=== PATIENT | male | born 1965 | race Caucasian/White ===

== ENCOUNTER 2019-05-23 19:06 | Inpatient (IN) | payer OTHER ==
--- NOTE | 2019-05-23 21:12 | HP ---
CIWA Score Nausea/Vomitin-No Nausea/No Vomiting Muscle Tremors: None Anxiety: 1-Mildly Anxious Agitation: 0-Normal Activity Paroxysmal Sweats: No Perspiration Orientation: 0-Oriented Tacttile Disturbances: 0-None Auditory Disturbances: 0-None Visual Disturbances: 0-None Headache: 2-Mild CIWA-Ar Total Score: 3 - Admission Criteria OASAS Guidelines: Admission for Medically Managed Detox: Requires at least one of the followin. CIWA greater than 12 2. Seizures within the past 24 hours 3. Delirium tremens within the past 24 hours 4. Hallucinations within the past 24 hours 5. Acute intervention needed for co occurring medical disorder 6. Acute intervention needed for co occurring psychiatric disorder 7. Severe withdrawal that cannot be handled at a lower level of care (continued vomiting, continued diarrhea, abnormal vital signs) requiring intravenous medication and/or fluids 8. Admission ROS S - [facility] Chief Complaint: Seeking admission to detox from alcohol Allergies/Adverse Reactions: Allergies Allergy/AdvReac Type Severity Reaction Status Date / Time haloperidol [From Haldol] Allergy Verified 05/23/19 20:05 History of Present Illness: 53 years male karih a long history of alcohol dependence is seeking admission to detox. Patient has been to previous detox and reports insignificant period of sobriety. Patient's last admission to [facility] was in 2010. He denies suicide attempt and suicidal ideation at this time. Patient is not actively withdrawing at this time. His CIWA score is 3 and MITCHEL is 0.000. He reports that his last drink was yesterday morning. He does not meet criteria for admission to detox at this time. Rehab. beds are at full capacity. Alternative treatment /fci information provided to patient. - Ebola screening Have you traveled outside of the country in the last 21 days: No (N) Have you had contact with anyone from an Ebola affected area: No Do you have a fever: No - Review of Systems Constitutional: No Symptoms Reported EENT: reports: No Symptoms Reported Respiratory: reports: No Symptoms reported Cardiac: reports: No Symptoms Reported GI: reports: Poor Appetite, Poor Fluid Intake : reports: No Symptoms Reported Musculoskeletal: reports: No Symptoms Reported Integumentary: reports: No Symptoms Reported Neuro: reports: Headache Endocrine: reports: No Symptoms Reported Hematology: reports: No Symptoms Reported Psychiatric: reports: No Sypmtoms Reported, Mood/Affect Appropiate, Orientated x3 Other Systems: Reviewed and Negative Patient History - Patient Medical History Hx Anemia: No Hx Asthma: Yes Hx Chronic Obstructive Pulmonary Disease (COPD): No Hx Cancer: No Hx Cardiac Disorders: No Hx Congestive Heart Failure: No Hx Hypertension: No Hx Hypercholesterolemia: No Hx Pacemaker: No HX Cerebrovascular Accident: No Hx Seizures: No Hx Dementia: No Hx Diabetes: No Hx Gastrointestinal Disorders: No Hx Liver Disease: No Hx Genitourinary Disorders: No Hx Sexually Transmitted Disorders: No Hx Renal Disease (ESRD): No Hx Thyroid Disease: No Hx Human Immunodeficiency Virus (HIV): No (Negative ) Hx Hepatitis C: No Hx Depression: Yes Hx Suicide Attempt: No (Denies suicidal ideation at this time) Hx Bipolar Disorder: No Hx Schizophrenia: No - Patient Surgical History Past Surgical History: No - PPD History Previous Implant?: No Documented Results: Negative w/proof Implanted On Prior [facility] Admission?: No PPD to be Administered?: Yes - Reproductive History Patient is a Female of Child Bearing Age (11 -55 yrs old): No (male) - Smoking Cessation Smoking history: Current every day smoker Have you smoked in the past 12 months: Yes Aproximately how many cigarettes per day: 20 Hx Chewing Tobacco Use: No Initiated information on smoking cessation: Yes 'Breaking Loose' booklet given: 05/23/19 - Substance & Tx. History Hx Alcohol Use: Yes Hx Substance Use: Yes Substance Use Type: Alcohol, Cocaine Hx Substance Use Treatment: Yes (UNknown) - Substances abused Alcohol Substance route: Oral Frequency: 3-6 times per week Amount used: VODKA 1 BOTTLE Age of first use: 6 Date of last use: 05/22/19 Crack Frequency: Daily Amount used: $100 - $1000 Age of first use: 13 Date of last use: 05/22/19 Admission Physical Exam [facility] - Physical General Appearance: Yes: Within Normal Limits HEENTM: Yes: Within Normal Limits Respiratory: Yes: Within Normal Limits Neck: Yes: Supple Breast: Yes: Breast Exam Deferred Cardiology: Yes: Regular Rhythm, Regular Rate Abdominal: Yes: Normal Bowel Sounds Genitourinary: Yes: Within Normal Limits Back: Yes: Normal Inspection Musculoskeletal: Yes: Within Normal Limits Extremities: Yes: Within Normal Limits Neurological: Yes: Within Normal Limits Integumentary: Yes: Warm Lymphatic: Yes: Within Normal Limits - Diagnostic (1) Alcohol dependence with withdrawal, uncomplicated Current Visit: Yes Status: Acute (2) Nicotine dependence Current Visit: Yes Status: Chronic Qualifiers: Nicotine product type: cigarettes Substance use status: uncomplicated Qualified Code(s): F17.210 - Nicotine dependence, cigarettes, uncomplicated (3) Asthma Current Visit: Yes Status: Chronic Screened but not Admitted - Documentation of Visit Screened but not Admitted: Yes Left Prior to Completion of Assessment: No Insurance Authorization Denied: No Patient Does Not Meet Criteria for Admission: Yes Level of Care Recommended at this Time: Other Alternative Treatment/[facility] Info Provided: Yes Additional Information/Explanation: Patient is not actively withdrawing at this time. His CIWA score is 3 and MITCHEL is 0.000. He reports that his last drink was yesterday morning. He does not meet criteria for admission to detox at this time. Rehab. beds are at full capacity. Alternative treatment /fci information provided to patient. Urine Drug Screen - Test Device Lot number: [id number] Expiration date: 01/02/21 - Control Is test valid?: No - Results Drug screen NEGATIVE: No Urine drug screen results: [facility] Inpatient Re[facility] Admission - Rehab Decision to Admit Inpatient rehab admission?: No
[2019-05-23] MEDS ORDERED: BISMUTH SUBSALICYLATE 524 MG/30 ML UD PO PRN (21:24)
[2019-05-23] MEDS ORDERED: IBUPROFEN 400 MG TABLET (FP) PO PRN (21:24)
[2019-05-23] MEDS ORDERED: MAG HYDROX/AL HYDROX/SIMETH 30 ML UNIT-DOSE CUP PO PRN (21:24)
[2019-05-23] MEDS ORDERED: ACETAMINOPHEN 325 MG TABLET (FP) PO PRN ×2 (21:24)
[2019-05-23] MEDS ORDERED: MAGNESIUM HYDROX 2400MG/30ML ORAL SUSPENSION 30 ML CUP PO PRN (21:24)
[2019-05-23] MEDS ORDERED: chlordiazePOXIDE HCL 10 MG CAPSULE PO PRN (21:24)
[2019-05-23] MEDS ORDERED: NICOTINE POLACRILEX 2 MG GUM BUC PRN (21:24)
[2019-05-23] MEDS ORDERED: MAGNESIUM CITRATE 300 ML BOTTLE PO PRN (21:24)
[2019-05-23] MEDS ORDERED: MELATONIN 5 MG TABLETS PO PRN (21:24)
[2019-05-23] MEDS ORDERED: METHOCARBAMOL 500 MG TABLET PO PRN (21:24)
[2019-05-23] MEDS ORDERED: hydrOXYzine PAMOATE 25 MG CAPSULE (FP) PO PRN (21:24)
--- NOTE | 2019-05-23 23:13 | HP ---
CIWA Score Nausea/Vomitin (vomiting x 2) Muscle Tremors: 3 Anxiety: 3 Agitation: 2 Paroxysmal Sweats: 2 Orientation: 0-Oriented Tacttile Disturbances: 0-None Auditory Disturbances: 0-None Visual Disturbances: 0-None Headache: 2-Mild CIWA-Ar Total Score: 15 - Admission Criteria OASAS Guidelines: Admission for Medically Managed Detox: Requires at least one of the followin. CIWA greater than 12 2. Seizures within the past 24 hours 3. Delirium tremens within the past 24 hours 4. Hallucinations within the past 24 hours 5. Acute intervention needed for co occurring medical disorder 6. Acute intervention needed for co occurring psychiatric disorder 7. Severe withdrawal that cannot be handled at a lower level of care (continued vomiting, continued diarrhea, abnormal vital signs) requiring intravenous medication and/or fluids 8. Admitting History and Physical - Smoking History Smoking history: Current every day smoker Have you smoked in the past 12 months: Yes Aproximately how many cigarettes per day: 20 - Alcohol/Substance Use Hx Alcohol Use: Yes Admission ROS [facility] Chief Complaint: Alcohol withdrawal symptoms Allergies/Adverse Reactions: Allergies Allergy/AdvReac Type Severity Reaction Status Date / Time haloperidol [From Haldol] Allergy Verified 05/23/19 20:05 History of Present Illness: 53 years male karih a long history of alcohol dependence is seeking admission to detox. Patient has been to previous detox and reports insignificant period of sobriety. Patient's last admission to [facility] was in 2010. He denies suicide attempt and suicidal ideation at this time. Exam Limitations: No Limitations - Ebola screening Have you traveled outside of the country in the last 21 days: No (N) Have you had contact with anyone from an Ebola affected area: No Do you have a fever: No - Review of Systems Constitutional: Chills EENT: reports: No Symptoms Reported Respiratory: reports: No Symptoms reported Cardiac: reports: No Symptoms Reported GI: reports: Diarrhea (x 3), Poor Appetite, Poor Fluid Intake, Vomiting (x 2), Abdominal cramping : reports: No Symptoms Reported Musculoskeletal: reports: Back Pain Integumentary: reports: Dryness, Flushing Neuro: reports: Tremors Endocrine: reports: No Symptoms Reported Hematology: reports: No Symptoms Reported Psychiatric: reports: Judgement Intact, Mood/Affect Appropiate, Orientated x3 Other Systems: Reviewed and Negative Patient History - Patient Medical History Hx Anemia: No Hx Asthma: Yes Hx Chronic Obstructive Pulmonary Disease (COPD): No Hx Cancer: No Hx Cardiac Disorders: No Hx Congestive Heart Failure: No Hx Hypertension: No Hx Hypercholesterolemia: No Hx Pacemaker: No HX Cerebrovascular Accident: No Hx Seizures: No Hx Dementia: No Hx Diabetes: No Hx Gastrointestinal Disorders: No Hx Liver Disease: No Hx Genitourinary Disorders: No Hx Sexually Transmitted Disorders: No Hx Renal Disease (ESRD): No Hx Thyroid Disease: No Hx Human Immunodeficiency Virus (HIV): No (Negative ) Hx Hepatitis C: No Hx Depression: Yes Hx Suicide Attempt: No (Denies suicidal ideation at this time) Hx Bipolar Disorder: No Hx Schizophrenia: No - Patient Surgical History Past Surgical History: No Hx Neurologic Surgery: No Hx Cataract Extraction: No Hx Cardiac Surgery: No Hx Lung Surgery: No Hx Breast Surgery: No Hx Breast Biopsy: No Hx Abdominal Surgery: No Hx Appendectomy: No Hx Cholecystectomy: No Hx Genitourinary Surgery: No Hx Section: No Hx Orthopedic Surgery: No Anesthesia Reaction: No - PPD History Previous Implant?: No Documented Results: Negative w/proof Implanted On Prior [facility] Admission?: No PPD to be Administered?: Yes - Reproductive History Patient is a Female of Child Bearing Age (11 -55 yrs old): No (male) - Smoking Cessation Smoking history: Current every day smoker Have you smoked in the past 12 months: Yes Aproximately how many cigarettes per day: 20 Hx Chewing Tobacco Use: No Initiated information on smoking cessation: Yes 'Breaking Loose' booklet given: 05/23/19 - Substance & Tx. History Hx Alcohol Use: Yes Hx Substance Use: Yes Substance Use Type: Cocaine Hx Substance Use Treatment: Yes - Substances abused Alcohol Substance route: Oral Frequency: 3-6 times per week Amount used: VODKA 1 BOTTLE Age of first use: 6 Date of last use: 05/23/19 Crack Frequency: Daily Amount used: $100 - $1000 Age of first use: 13 Date of last use: 05/23/19 Admission Physical Exam [facility] - Physical General Appearance: Yes: Moderate Distress, Anxious HEENTM: Yes: Within Normal Limits Respiratory: Yes: Normal Breath Sounds, No Respiratory Distress Neck: Yes: Within Normal Limits, Supple Breast: Yes: Breast Exam Deferred Cardiology: Yes: Regular Rhythm, Regular Rate Abdominal: Yes: Normal Bowel Sounds, Soft Genitourinary: Yes: Within Normal Limits Back: Yes: Normal Inspection Musculoskeletal: Yes: Within Normal Limits Extremities: Yes: Normal Inspection Neurological: Yes: Within Normal Limits, Fully Oriented, Alert, Normal Mood/ Affect Integumentary: Yes: Warm Lymphatic: Yes: Within Normal Limits - Diagnostic (1) Alcohol dependence with withdrawal, uncomplicated Current Visit: Yes Status: Acute (2) Nicotine dependence Current Visit: Yes Status: Chronic Qualifiers: Nicotine product type: cigarettes Substance use status: uncomplicated Qualified Code(s): F17.210 - Nicotine dependence, cigarettes, uncomplicated (3) Asthma Current Visit: Yes Status: Chronic Cleared for Admission S - Detox or Rehab S Level of Care: Medically Managed Detox Regimen/Protocol: [facility] Urine Drug Screen - Test Device Lot number: [id number] Expiration date: 01/02/21 - Control Is test valid?: No - Results Drug screen NEGATIVE: No Urine drug screen results: [facility] Inpatient Rehab Admission - Rehab Decision to Admit Inpatient rehab admission?: No
[2019-05-23] MEDS: chlordiazePOXIDE HCL 25 MG CAPSULE PO SCH (23:59)
[2019-05-23] MEDS: THIAMINE HCL 100 MG TABLET (FP) PO SCH (23:59)
[2019-05-24] MEDS: chlordiazePOXIDE HCL 25 MG CAPSULE PO SCH ×3 (06:06→22:30)
[2019-05-24 10:10] LABS: ALBUMIN 3.3 g/dl (3.4-5.0); BILIRUBIN,TOTAL 0.3 mg/dL (0.2-1); BLOOD UREA NITROGEN 18.2 mg/dL (7-18); CALCIUM 8.7 mg/dL (8.5-10.1); CREATININE 0.9 mg/dL (0.55-1.3); POTASSIUM 4.1 mmol/L (3.5-5.1)
[2019-05-24 10:25] LABS: HEMOGLOBIN 12.1 GM/dL (11.7-16.9); MCH 33.7 pg (25.7-33.7); MCHC 33.7 g/dl (32.0-35.9); MEAN CELL VOLUME 99.9 fl (80-96); PLATELET COUNT 178 K/MM3 (134-434); RDW 13.8 % (11.9-15.9); WHITE BLOOD COUNT 4.5 K/mm3 (4.0-10.0)
--- NOTE | 2019-05-24 10:45 | EKG ---
Test Reason : Blood Pressure : / mmHG Vent. Rate : 058 BPM Atrial Rate : 058 BPM P-R Int : 164 ms QRS Dur : 102 ms QT Int : 438 ms P-R-T Axes : 074 077 074 degrees QTc Int : 429 ms BASELINE ARTIFACT SINUS BRADYCARDIA OTHERWISE NORMAL ECG Confirmed by MD MARIAH, VITA ([id number]) on 05/24/2019 10:45:07 AM Referred By: Confirmed By:VITA LEMUS MD
[2019-05-24] MEDS: NICOTINE 21 MG/24 HOURS TOPICAL PATCH TD SCH (11:30)
[2019-05-24] MEDS: PRENATAL VITAMINS W/ FOLIC ACID TABLET (FP) PO SCH (11:31)
--- NOTE | 2019-05-24 15:23 | PN ---
[facility] CIWA - CIWA Score Nausea/Vomitin-Mild Nausea/No Vomiting Muscle Tremors: 4-Moderate,w/Arms Extend Anxiety: 3 Agitation: 2 Paroxysmal Sweats: 3 Orientation: 0-Oriented Tacttile Disturbances: 0-None Auditory Disturbances: 0-None Visual Disturbances: 0-None Headache: 0-None Present CIWA-Ar Total Score: 13 S Progress Note (SOAP) Subjective: 53 years old male admitted on 05/23/19 for alcohol withdrawal sx management treated with librium detox regimen coughing "chest cold" clear lung no wheezing mucinex bid encourage oral fluid resting Objective: 05/24/19 15:23 Vital Signs Temperature 97.8 F 05/24/19 13:17 Pulse Rate 73 05/24/19 13:17 Respiratory Rate 18 05/24/19 13:17 Blood Pressure 90/62 05/24/19 13:17 O2 Sat by Pulse Oximetry (%) 05/24/19 15:23 Laboratory Last Values WBC 4.5 K/mm3 (4.0-10.0) 05/24/19 08:00 RBC 3.60 M/mm3 (4.00-5.60) L 05/24/19 08:00 Hgb 12.1 GM/dL (11.7-16.9) 05/24/19 08:00 Hct 36.0 % (35.4-49) 05/24/19 08:00 MCV 99.9 fl (80-96) H 05/24/19 08:00 MCH 33.7 pg (25.7-33.7) 05/24/19 08:00 MCHC 33.7 g/dl (32.0-35.9) 05/24/19 08:00 RDW 13.8 % (11.9-15.9) 05/24/19 08:00 Plt Count 178 K/MM3 (134-434) 05/24/19 08:00 MPV 7.0 fl (7.5-11.1) L 05/24/19 08:00 Sodium 139 mmol/L (136-145) 05/24/19 08:00 Potassium 4.1 mmol/L (3.5-5.1) 05/24/19 08:00 Chloride 109 mmol/L (98-107) H 05/24/19 08:00 Carbon Dioxide 25 mmol/L (21-32) 05/24/19 08:00 Anion Gap 5 MMOL/L (8-16) L 05/24/19 08:00 BUN 18.2 mg/dL (7-18) H 05/24/19 08:00 Creatinine 0.9 mg/dL (0.55-1.3) 05/24/19 08:00 Est GFR (CKD-EPI)AfAm 111.05 05/24/19 08:00 Est GFR (CKD-EPI)NonAf 95.81 05/24/19 08:00 Random Glucose 87 mg/dL (74-106) 05/24/19 08:00 Calcium 8.7 mg/dL (8.5-10.1) 05/24/19 08:00 Total Bilirubin 0.3 mg/dL (0.2-1) 05/24/19 08:00 AST 18 U/L (15-37) 05/24/19 08:00 ALT 23 U/L (13-61) 05/24/19 08:00 Alkaline Phosphatase 53 U/L (45-117) 05/24/19 08:00 Total Protein 6.0 g/dl (6.4-8.2) L 05/24/19 08:00 Albumin 3.3 g/dl (3.4-5.0) L 05/24/19 08:00 RPR Titer Nonreactive (NONREACTIVE) 05/24/19 08:00 lab noted Assessment: 05/24/19 15:24 alcohol withdrawal sx Plan: continue librium detox regimen
--- NOTE | 2019-05-24 17:35 | CONSULT ---
[facility] Psychiatric Consult - Data Date of interview: 05/24/19 Admission source: [facility] Identifying data: Patient is approached for psychiatric interview (as requested by medical team). Mr Lutz declines to converse with psychiatrist. " I don't feel like talking. Leave ". Nursing staff is aware.
[2019-05-24] MEDS: THIAMINE HCL 100 MG TABLET (FP) PO SCH (22:22)
[2019-05-24] MEDS: guaiFENesin 600 MG TABLET.ER (FP) PO SCH (22:23)
[2019-05-25] MEDS: chlordiazePOXIDE 5 MG CAPSULE PO SCH ×3 (06:26→21:28)
[2019-05-25] MEDS: guaiFENesin 600 MG TABLET.ER (FP) PO SCH ×2 (10:29→21:31)
[2019-05-25] MEDS: NICOTINE 21 MG/24 HOURS TOPICAL PATCH TD SCH (10:29)
[2019-05-25] MEDS: PRENATAL VITAMINS W/ FOLIC ACID TABLET (FP) PO SCH (10:29)
[2019-05-25] MEDS: MENTHOL/PHENOL 1 EACH UD MM PRN ×2 (10:30→21:31)
--- NOTE | 2019-05-25 11:42 | PN ---
S CIWA - CIWA Score Nausea/Vomitin-Mild Nausea/No Vomiting Muscle Tremors: 2 Anxiety: 2 Agitation: 2 Paroxysmal Sweats: 1-Minimal Palms Moist Orientation: 0-Oriented Tacttile Disturbances: 0-None Auditory Disturbances: 0-None Visual Disturbances: 0-None Headache: 0-None Present CIWA-Ar Total Score: 8 S Progress Note (SOAP) Subjective: 53 years old male admitted on 05/23/19 for alcohol withdrawal sx management treated with librium detox regimen ate breakfast feeling better today slept through the night Objective: 05/25/19 11:41 Vital Signs Temperature 97.8 F 05/25/19 09:19 Pulse Rate 77 05/25/19 09:19 Respiratory Rate 16 05/25/19 09:19 Blood Pressure 94/54 L 05/25/19 09:19 O2 Sat by Pulse Oximetry (%) Laboratory Last Values WBC 4.5 K/mm3 (4.0-10.0) 05/24/19 08:00 RBC 3.60 M/mm3 (4.00-5.60) L 05/24/19 08:00 Hgb 12.1 GM/dL (11.7-16.9) 05/24/19 08:00 Hct 36.0 % (35.4-49) 05/24/19 08:00 MCV 99.9 fl (80-96) H 05/24/19 08:00 MCH 33.7 pg (25.7-33.7) 05/24/19 08:00 MCHC 33.7 g/dl (32.0-35.9) 05/24/19 08:00 RDW 13.8 % (11.9-15.9) 05/24/19 08:00 Plt Count 178 K/MM3 (134-434) 05/24/19 08:00 MPV 7.0 fl (7.5-11.1) L 05/24/19 08:00 Sodium 139 mmol/L (136-145) 05/24/19 08:00 Potassium 4.1 mmol/L (3.5-5.1) 05/24/19 08:00 Chloride 109 mmol/L (98-107) H 05/24/19 08:00 Carbon Dioxide 25 mmol/L (21-32) 05/24/19 08:00 Anion Gap 5 MMOL/L (8-16) L 05/24/19 08:00 BUN 18.2 mg/dL (7-18) H 05/24/19 08:00 Creatinine 0.9 mg/dL (0.55-1.3) 05/24/19 08:00 Est GFR (CKD-EPI)AfAm 111.05 05/24/19 08:00 Est GFR (CKD-EPI)NonAf 95.81 05/24/19 08:00 Random Glucose 87 mg/dL (74-106) 05/24/19 08:00 Calcium 8.7 mg/dL (8.5-10.1) 05/24/19 08:00 Total Bilirubin 0.3 mg/dL (0.2-1) 05/24/19 08:00 AST 18 U/L (15-37) 05/24/19 08:00 ALT 23 U/L (13-61) 05/24/19 08:00 Alkaline Phosphatase 53 U/L (45-117) 05/24/19 08:00 Total Protein 6.0 g/dl (6.4-8.2) L 05/24/19 08:00 Albumin 3.3 g/dl (3.4-5.0) L 05/24/19 08:00 RPR Titer Nonreactive (NONREACTIVE) 05/24/19 08:00 lab noted Assessment: 05/25/19 11:42 alcohol withdrawal sx Plan: continue libirum detox regimen
[2019-05-25] MEDS ORDERED: predniSONE 20 MG TABLET (UD) PO ONE (14:37)
[2019-05-25] MEDS: ALBUTEROL SO4 8 GM HFA INHALER IH PRN ×2 (14:41→18:46)
[2019-05-25] MEDS: THIAMINE HCL 100 MG TABLET (FP) PO SCH (21:28)
[2019-05-26] MEDS ORDERED: chlordiazePOXIDE HCL 10 MG CAPSULE PO PRN
[2019-05-26] MEDS: chlordiazePOXIDE HCL 10 MG CAPSULE PO SCH ×3 (05:30→21:14)
[2019-05-26] MEDS ORDERED: predniSONE 20 MG TABLET (UD) PO ONE (10:00)
[2019-05-26] MEDS: guaiFENesin 600 MG TABLET.ER (FP) PO SCH ×2 (10:54→22:11)
[2019-05-26] MEDS: NICOTINE 21 MG/24 HOURS TOPICAL PATCH TD SCH (10:55)
[2019-05-26] MEDS: ALBUTEROL SO4 8 GM HFA INHALER IH PRN ×3 (10:56→22:12)
[2019-05-26] MEDS: PRENATAL VITAMINS W/ FOLIC ACID TABLET (FP) PO SCH (10:56)
--- NOTE | 2019-05-26 11:51 | PN ---
[facility] CIWA - CIWA Score Nausea/Vomitin-No Nausea/No Vomiting Muscle Tremors: 2 Anxiety: 1-Mildly Anxious Agitation: 1-Slight > Activity Paroxysmal Sweats: No Perspiration Orientation: 0-Oriented Tacttile Disturbances: 0-None Auditory Disturbances: 0-None Visual Disturbances: 0-None Headache: 0-None Present CIWA-Ar Total Score: 4 S Progress Note (SOAP) Subjective: 53 years old male admitted on 05/23/19 for alcohol withdrawal sx management treated with librium detox regimen ambulating on hallway encourage oral fluid denies dizziness steady gait Objective: 05/26/19 11:49 Vital Signs Temperature 98.4 F 05/26/19 09:08 Pulse Rate 88 05/26/19 09:08 Respiratory Rate 16 05/26/19 09:08 Blood Pressure 95/56 L 05/26/19 09:08 O2 Sat by Pulse Oximetry (%) Laboratory Last Values WBC 4.5 K/mm3 (4.0-10.0) 05/24/19 08:00 RBC 3.60 M/mm3 (4.00-5.60) L 05/24/19 08:00 Hgb 12.1 GM/dL (11.7-16.9) 05/24/19 08:00 Hct 36.0 % (35.4-49) 05/24/19 08:00 MCV 99.9 fl (80-96) H 05/24/19 08:00 MCH 33.7 pg (25.7-33.7) 05/24/19 08:00 MCHC 33.7 g/dl (32.0-35.9) 05/24/19 08:00 RDW 13.8 % (11.9-15.9) 05/24/19 08:00 Plt Count 178 K/MM3 (134-434) 05/24/19 08:00 MPV 7.0 fl (7.5-11.1) L 05/24/19 08:00 Sodium 139 mmol/L (136-145) 05/24/19 08:00 Potassium 4.1 mmol/L (3.5-5.1) 05/24/19 08:00 Chloride 109 mmol/L (98-107) H 05/24/19 08:00 Carbon Dioxide 25 mmol/L (21-32) 05/24/19 08:00 Anion Gap 5 MMOL/L (8-16) L 05/24/19 08:00 BUN 18.2 mg/dL (7-18) H 05/24/19 08:00 Creatinine 0.9 mg/dL (0.55-1.3) 05/24/19 08:00 Est GFR (CKD-EPI)AfAm 111.05 05/24/19 08:00 Est GFR (CKD-EPI)NonAf 95.81 05/24/19 08:00 Random Glucose 87 mg/dL (74-106) 05/24/19 08:00 Calcium 8.7 mg/dL (8.5-10.1) 05/24/19 08:00 Total Bilirubin 0.3 mg/dL (0.2-1) 05/24/19 08:00 AST 18 U/L (15-37) 05/24/19 08:00 ALT 23 U/L (13-61) 05/24/19 08:00 Alkaline Phosphatase 53 U/L (45-117) 05/24/19 08:00 Total Protein 6.0 g/dl (6.4-8.2) L 05/24/19 08:00 Albumin 3.3 g/dl (3.4-5.0) L 05/24/19 08:00 RPR Titer Nonreactive (NONREACTIVE) 05/24/19 08:00 lab noted Assessment: 05/26/19 11:49 alcohol withdrawal sx Plan: continue librium detox regimen
[2019-05-26] MEDS: ALBUTEROL SO4 0.083% IH SOL 2.5 MG/3 ML VIAL.NEB. NEB PRN ×2 (13:31→22:34)
[2019-05-26] MEDS ORDERED: ONDANSETRON *ODT* 4 MG TABLET SL PRN (17:52)
--- NOTE | 2019-05-26 17:55 | PN ---
[facility] Progress Note Note: Vital Signs Temperature 98.8 F 05/26/19 17:35 Pulse Rate 81 05/26/19 17:35 Respiratory Rate 18 05/26/19 17:35 Blood Pressure 117/57 L 05/26/19 17:35 O2 Sat by Pulse Oximetry (%) Laboratory Last Values WBC 4.5 K/mm3 (4.0-10.0) 05/24/19 08:00 RBC 3.60 M/mm3 (4.00-5.60) L 05/24/19 08:00 Hgb 12.1 GM/dL (11.7-16.9) 05/24/19 08:00 Hct 36.0 % (35.4-49) 05/24/19 08:00 MCV 99.9 fl (80-96) H 05/24/19 08:00 MCH 33.7 pg (25.7-33.7) 05/24/19 08:00 MCHC 33.7 g/dl (32.0-35.9) 05/24/19 08:00 RDW 13.8 % (11.9-15.9) 05/24/19 08:00 Plt Count 178 K/MM3 (134-434) 05/24/19 08:00 MPV 7.0 fl (7.5-11.1) L 05/24/19 08:00 Sodium 139 mmol/L (136-145) 05/24/19 08:00 Potassium 4.1 mmol/L (3.5-5.1) 05/24/19 08:00 Chloride 109 mmol/L (98-107) H 05/24/19 08:00 Carbon Dioxide 25 mmol/L (21-32) 05/24/19 08:00 Anion Gap 5 MMOL/L (8-16) L 05/24/19 08:00 BUN 18.2 mg/dL (7-18) H 05/24/19 08:00 Creatinine 0.9 mg/dL (0.55-1.3) 05/24/19 08:00 Est GFR (CKD-EPI)AfAm 111.05 05/24/19 08:00 Est GFR (CKD-EPI)NonAf 95.81 05/24/19 08:00 Random Glucose 87 mg/dL (74-106) 05/24/19 08:00 Calcium 8.7 mg/dL (8.5-10.1) 05/24/19 08:00 Total Bilirubin 0.3 mg/dL (0.2-1) 05/24/19 08:00 AST 18 U/L (15-37) 05/24/19 08:00 ALT 23 U/L (13-61) 05/24/19 08:00 Alkaline Phosphatase 53 U/L (45-117) 05/24/19 08:00 Total Protein 6.0 g/dl (6.4-8.2) L 05/24/19 08:00 Albumin 3.3 g/dl (3.4-5.0) L 05/24/19 08:00 RPR Titer Nonreactive (NONREACTIVE) 05/24/19 08:00 c/o of nausea and vomiting zofran prn fluids as tolerated continue to monitor
[2019-05-26] MEDS: THIAMINE HCL 100 MG TABLET (FP) PO SCH (21:14)
[2019-05-27] MEDS ORDERED: chlordiazePOXIDE HCL 10 MG CAPSULE PO ONE (05:00)
[2019-05-27] MEDS: ALBUTEROL SO4 8 GM HFA INHALER IH PRN (06:34)
[2019-05-27] MEDS ORDERED: predniSONE 20 MG TABLET (UD) PO ONE (07:00)
[2019-05-27] MEDS: ALBUTEROL SO4 0.083% IH SOL 2.5 MG/3 ML VIAL.NEB. NEB PRN (07:09)
--- NOTE | 2019-05-27 09:12 | PN ---
[facility] CIWA - CIWA Score Nausea/Vomitin-No Nausea/No Vomiting Muscle Tremors: 1-None Visible, but [place] Anxiety: 0-No Anxiety, at Ease Agitation: 0-Normal Activity Paroxysmal Sweats: No Perspiration Orientation: 0-Oriented Tacttile Disturbances: 0-None Auditory Disturbances: 0-None Visual Disturbances: 0-None Headache: 1-Very Mild CIWA-Ar Total Score: 2 [facility] Progress Note (SOAP) Subjective: alert,no complaint Objective: 05/27/19 09:11 Vital Signs Temperature 98.0 F 05/27/19 07:46 Pulse Rate 75 05/27/19 07:46 Respiratory Rate 18 05/27/19 07:46 Blood Pressure 100/52 L 05/27/19 07:46 O2 Sat by Pulse Oximetry (%) Assessment: 05/27/19 09:11 detox completed,no withdrawal symptom Plan: discharge today,follow up with after care program as arrangement
--- NOTE | 2019-05-27 09:14 | DS ---
[facility] Detox Discharge Summary Admission Date: 05/23/19 Discharge Date: 05/27/19 - History Present History: Alcohol Dependence Additional Comments: follow up with after care program as arrangement Pertinent Past History: asthma nicotine dependence - Physical Exam Results Vital Signs: Vital Signs Temperature 98.0 F 05/27/19 07:46 Pulse Rate 75 05/27/19 07:46 Respiratory Rate 18 05/27/19 07:46 Blood Pressure 100/52 L 05/27/19 07:46 O2 Sat by Pulse Oximetry (%) Pertinent Admission Physical Exam Findings: withdrawal signs and symptom - Treatment Hospital Course: Detox Protocol Followed, Detoxed Safely, Responded well, Discharged Condition Good Patient has Accepted a Rehab Referral to: declined - Medication Discharge Medications: Ambulatory Orders NK [No Known Home Medication] 05/23/19 - Diagnosis (1) Alcohol dependence with withdrawal, uncomplicated Current Visit: Yes Status: Acute (2) Asthma Current Visit: Yes Status: Chronic (3) Nicotine dependence Current Visit: Yes Status: Chronic Qualifiers: Nicotine product type: cigarettes Substance use status: uncomplicated Qualified Code(s): F17.210 - Nicotine dependence, cigarettes, uncomplicated
[2019-05-27] MEDS: guaiFENesin 600 MG TABLET.ER (FP) PO SCH (10:07)
[2019-05-27] MEDS: PRENATAL VITAMINS W/ FOLIC ACID TABLET (FP) PO SCH (10:07)
[2019-05-27] MEDS: NICOTINE 21 MG/24 HOURS TOPICAL PATCH TD SCH (10:07)
[2019-05-27 17:42] VITALS: BP 118/65; PULSE 79; TEMP 97.6
== END 2019-05-27 18:30 | disposition home or self-care (01) | DRG 774 ==
LOC: YASAS 19:06 → Y3N 22:56
PROVIDERS: ADMIT Allergy & Immunology; ATTEND Allergy & Immunology
PROC: HZ2ZZZZ Detoxification Services for Substance Abuse Treatment (ICD-10-PCS; principal; 2019-05-23)
DX: F10.230 Alcohol dependence with withdrawal, uncomplicated (principal); F14.20 Cocaine dependence, uncomplicated; F17.210 Nicotine dependence, cigarettes, uncomplicated; F32.9 Major depressive disorder, single episode, unspecified; J45.909 Unspecified asthma, uncomplicated; Z88.8 Allergy status to other drugs, medicaments and biological substances
CPT/HCPCS: 36415; 80053; 85027; 86593; 93005; 93010; 94640